=== PATIENT | male | born 1945 | race Caucasian/White ===

== ENCOUNTER 2016-09-05 11:05 | Day surgery (SDC) | payer OTHER ==
[~2016-09-05] VITALS: Ht 165.1 cm; Wt 63.0 kg
[~2016-09-05 11:05] MED LIST: ALEVE220 MG PO; B-COMPLEX W/VI1 EAC1 PO; BREO ELLIPTA 21 EACH IH; COMBIVENT RESPIM4 GM IH; CRESTOR5 MG PO; DESYREL 150 MG150 MG PO; FLOMAX0.4 MG PO; HEARTBURN RELI150 M1 PO; L-LYSINE500 M2 PO; LO-DOSE ASPIRIN81 M2 PO; MAGNESIUM250 MG PO; MELATONIN5 M4 PO; MOBIC7.5 MG PO; NITROSTAT0.4 MG SL; PROBIOTIC1 EAC3 PO; PROTONIX20 MG PO; SPIRIVA RESPIMAT4 G1 IH; ZESTRIL10 MG PO
[2016-09-05] MEDS ORDERED: BREO ELLIPTA 21 EACH IH (11:39)
[2016-09-05] MEDS ORDERED: ACETAMINOPHEN500 M9 PO (11:41)
[2016-09-05] MEDS ORDERED: MELATONIN5 M1 PO (11:42)
[2016-09-05] MEDS ORDERED: 5-HTP100 MG PO (11:44)
[2016-09-05] MEDS ORDERED: PEPOGEST0.2 ML PO (11:45)
[2016-09-05 11:55] VITALS: BP 131/74
[2016-09-05 15:50] VITALS: BP 118/81
== END 2016-09-05 17:10 | disposition home or self-care (01) ==
LOC: SDC 11:05
DX: M43.16 Spondylolisthesis, lumbar region (principal); M48.06 Spinal stenosis, lumbar region; M51.36 Other intervertebral disc degeneration, lumbar region; M51.26 Other intervertebral disc displacement, lumbar region; K21.9 Gastro-esophageal reflux disease without esophagitis; J45.909 Unspecified asthma, uncomplicated; I10 Essential (primary) hypertension; G89.29 Other chronic pain; M54.5 Low back pain; I25.10 Atherosclerotic heart disease of native coronary artery without angina pectoris; E78.5 Hyperlipidemia, unspecified; J44.9 Chronic obstructive pulmonary disease, unspecified; I65.29 Occlusion and stenosis of unspecified carotid artery; I25.2 Old myocardial infarction; Z95.2 Presence of prosthetic heart valve; Z79.82 Long term (current) use of aspirin; Z82.49 Family history of ischemic heart disease and other diseases of the circulatory system
CPT/HCPCS: 72020; 76000; 80048; 84295; 85027; J0330; J0690; J1100; J2405; J2930; J3010; S0020